=== PATIENT | male | born 1995 | race Caucasian/White ===

== ENCOUNTER 2018-08-19 11:17 | Emergency (ER) | payer SELFPAY ==
[2018-08-19] MEDS: Bacitracin/Neomycin/Polymyxin B Oint 0.9 GM U/D Packet TOP ONE (11:40)
[2018-08-19] MEDS: Lidocaine 1% 20 ML MDV INJECT ONE (11:40)
[2018-08-19] MEDS: Diphtheria,Pertussis(Acell),Tetanus Vaccine 0.5 ML Syringe IM ONE (11:40)
--- NOTE | 2018-08-19 11:43 | EDM.PDOC ---
ED HPI GENERAL MEDICAL PROBLEM - General Chief Complaint: Laceration Stated Complaint: thumb laceration Time Seen by Provider: 08/19/18 11:30 Source of Information: Reports: Patient History Limitations: Reports: No Limitations - History of Present Illness INITIAL COMMENTS - FREE TEXT/NARRATIVE: Patient presents to ER with a laceration to the distal tip of his right thumb. States was hammering and caught his thumb between the hammer and metal. Was bleeding a great deal prior to arrival. Has good range of motion to his thumb. Last known tetanus many years ago. 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 [No Known Home Meds] 08/19/18 [History] Past Medical History - Past Health History Medical/Surgical History: Denies Medical/Surgical History Social & Family History - Family History Family Medical History: Noncontributory - Tobacco Use Smoking Status *Q: Current Every Day Smoker Years of Tobacco use: 3 Packs/Tins Daily: 0.5 - Caffeine Use Caffeine Use: Reports: None - Recreational Drug Use Recreational Drug Use: No ED ROS GENERAL - Review of Systems Review Of Systems: See Below Musculoskeletal: Reports: No Symptoms Skin: Reports: Wound (laceration to right thumb) Neurological: Reports: No Symptoms ED EXAM, SKIN/RASH Exam: See Below Exam Limited By: No Limitations General Appearance: Alert, WD/WN, No Apparent Distress Skin: Wound/Incision Location, Skin: Upper Extremity, Right Characteristics: Linear ED SKIN PROCEDURES - Laceration/Wound Repair Right Digit - 1st (Thumb) Lac/Wound length In cm: 2.5 Appearance: Linear (patient has laceration around the distal tip of his right thumbnail. ), Mildly Contaminated Distal NVT: Neuro & Vascular Intact Anesthetic Type: Local Local Anesthesia - Lidocaine (Xylocaine): 1% Plain Local Anesthetic Volume: 3cc Exploration/Debridement/Repair: Wound Explored, Explored to Base Closed with: Sutures Suture Size: 4-0 # of Sutures: 2 Suture Type: Nylon, Interrupted, Simple (sutures completed from the distal tip through the nail. Wound approximated well ) Sterile Dressing Applied: Nurse Tetanus Status Addressed: Yes Complications: No Course - Vital Signs Last Recorded V/S: Last Vital Signs Temp 97.1 F 08/19/18 11:25 Pulse 71 08/19/18 11:25 Resp 16 08/19/18 11:25 BP 135/73 08/19/18 11:25 Pulse Ox 100 08/19/18 11:25 - Orders/Labs/Meds Orders: Active Orders 24 hr Category Date Time Status Vaccines to be Administered [RC] PER UNIT ROUTINE Care 08/19/18 11:30 Ordered Meds: Medications Discontinued Medications Generic Name Dose Route Start Last Admin Trade Name Freq PRN Reason Stop Dose Admin Diphtheria/Tetanus/Acell Pertussis 0.5 ml 08/19/18 11:30 08/19/18 11:40 Adacel IM 08/19/18 11:31 0.5 ml .ONCE ONE Administration Lidocaine HCl 20 ml 08/19/18 11:29 08/19/18 11:40 Xylocaine 1% INJECT 08/19/18 11:30 20 ml ONETIME ONE Administration Neomycin/Polymyxin/Bacitracin 1 each 08/19/18 11:29 08/19/18 11:40 Triple Antibiotic Oint TOP 08/19/18 11:30 1 each ONETIME ONE Administration Departure - Departure Time of Disposition: 11:42 Disposition: Home, Self-Care 01 Condition: Good Clinical Impression: Broken skin, Laceration of thumb - Discharge Information Forms: ED Department Discharge Additional Instructions: 1. Keep wound clean and dry, cover while at work 2. Wound care instructions~ see hand out 3. Contact us if any redness, drainage or increased pain 4. Follow up in 10 days for suture removal - My Orders Last 24 Hours: My Active Orders 08/19/18 11:30 Vaccines to be Administered [RC] PER UNIT ROUTINE - Assessment/Plan Last 24 Hours: My Active Orders 08/19/18 11:30 Vaccines to be Administered [RC] PER UNIT ROUTINE
== END 2018-08-19 12:19 | disposition home or self-care (01) ==
LOC: CC.ED 11:17
DX: S61.021A Laceration with foreign body of right thumb without damage to nail, initial encounter (principal); L08.9 Local infection of the skin and subcutaneous tissue, unspecified; Z23 Encounter for immunization; F17.210 Nicotine dependence, cigarettes, uncomplicated; W22.8XXA Striking against or struck by other objects, initial encounter
CPT/HCPCS: 12001; 90471; 90715; 99282; J2001

== ENCOUNTER 2022-03-19 13:11 | Emergency (ER) | payer OTHER, BC ==
[2022-03-19] MEDS ORDERED: Lidocaine 1% 5 ML VIAL INJECT ONE (14:06)
[2022-03-19] MEDS ORDERED: Bacitracin/Neomycin/Polymyxin B Oint 0.9 GM U/D Packet TOP ONE (14:10)
[2022-03-19] MEDS ORDERED: Bacitracin/Neomycin/Polymyxin B Oint 0.9 GM U/D Packet TOP SCH (20:00)
== END 2022-03-19 14:45 | disposition home or self-care (01) ==
LOC: CC.ED 13:11
DX: S62.667B Nondisplaced fracture of distal phalanx of left little finger, initial encounter for open fracture (principal); Z72.0 Tobacco use; W23.0XXA Caught, crushed, jammed, or pinched between moving objects, initial encounter; Y92.89 Other specified places as the place of occurrence of the external cause; Y99.0 Civilian activity done for income or pay
CPT/HCPCS: 12001; 73140-F4; 99283

== ENCOUNTER 2022-03-28 20:17 | Emergency (ER) | payer BC, OTHER ==
[~2022-03-28 20:17] MED LIST: Tetracaine HCl/PF 0.5% 4 ML Bottle EYERT ONE
[2022-03-28] MEDS ORDERED: Fluorescein 1 MG Ophth Strip EYERT ONE (21:23)
[2022-03-28] MEDS ORDERED: Erythromycin Base 0.5% Ophth Oint 3.5 GM Tube EYEBOTH ONE (21:25)
== END 2022-03-28 22:00 | disposition home or self-care (01) ==
LOC: CC.ED 20:17
DX: T15.01XA Foreign body in cornea, right eye, initial encounter (principal)
CPT/HCPCS: 65220; 99283; A9270-GY